=== PATIENT | female | born 1990 | race Caucasian/White ===

== ENCOUNTER → 2020-04-10 | Outpatient (CLI) | payer BC, MEDICAID ==
--- NOTE | 2020-04-10 19:54 | NUR ---
Notified patient of positive COVID results. Answered questions and explained quarantine.
== END ==
LOC: LAB 18:49
PROVIDERS: ATTEND Nurse Practitioner
DX: U07.1 COVID-19 (principal)
CPT/HCPCS: 87635

== ENCOUNTER → 2021-08-14 | Outpatient (CLI) | payer BC, MEDICAID | LOC: LAB 17:59 | PROVIDERS: ATTEND Emergency Medicine | DX: J02.9 Acute pharyngitis, unspecified (principal); Z20.822 Contact with and (suspected) exposure to COVID-19 | CPT/HCPCS: 87636 ==

== ENCOUNTER → 2022-02-05 | Outpatient (CLI) | payer BC, MEDICAID ==
--- NOTE | 2022-02-05 14:23 | Diagnostic Imaging Report ---
PROCEDURE: Pelvic comp/transvaginal sonogram. TECHNIQUE: Complete transabdominal and transvaginal pelvic ultrasound was performed. In addition, limited pelvic Doppler was performed. INDICATION: Evaluate IUD. Uterus is anteverted measuring 8.3 x 4.4 x 5.2 cm. Endometrium is 9 mm in thickness. The IUD is appropriately centered within the endometrial canal. Right ovary measures 4.7 x 2.9 x 3.1 cm and the left ovary measures 2.9 x 2.6 x 2.5 cm. There is blood flow to both ovaries. No adnexal mass or free fluid is detected. IMPRESSION: Unremarkable transabdominal and transvaginal pelvic ultrasound. IUD is appropriately centered within the endometrial canal. Dictated by: Dictated on workstation # [id number]
== END ==
LOC: RAD 12:00
PROVIDERS: ATTEND Obstetrics & Gynecology
DX: Z30.431 Encounter for routine checking of intrauterine contraceptive device (principal)
CPT/HCPCS: 76830; 76856

== ENCOUNTER → 2022-04-12 | Outpatient (CLI) | payer BC, MEDICAID ==
[2022-04-12 13:01] LABS: BASOPHILS # (AUTO) 0.1 10^3/uL (0.0-0.1); BASOPHILS % (AUTO) 1 % (0-10); EOSINOPHILS # (AUTO) 0.4 10^3/uL (0.0-0.3); EOSINOPHILS % (AUTO) 4 % (0-10); HEMATOCRIT 40 % (35-52); HEMOGLOBIN 13.4 g/dL (11.5-16.0); LYMPHOCYTES % (AUTO) 30 % (12-44); MEAN CORPUSCULAR HEMOGLOBIN 29 pg (25-34); MEAN CORPUSCULAR HGB CONC 33 g/dL (32-36); MEAN CORPUSCULAR VOLUME 87 fL (80-99); MEAN PLATELET VOLUME 10.5 fL (9.0-12.2); MONOCYTES # (AUTO) 0.5 10^3/uL (0.0-1.0); MONOCYTES % (AUTO) 5 % (0-12); NEUTROPHILS # (AUTO) 6.1 10^3/uL (1.8-7.8); NEUTROPHILS % (AUTO) 60 % (42-75); PLATELET COUNT 334 10^3/uL (130-400); WHITE BLOOD COUNT 10.1 10^3/uL (4.3-11.0)
[2022-04-12 13:10] LABS: ALBUMIN 4.2 GM/DL (3.2-4.5); POTASSIUM 3.8 MMOL/L (3.6-5.0)
[2022-04-12 13:11] LABS: CALCIUM 9.2 MG/DL (8.5-10.1)
[2022-04-12 13:12] LABS: TOTAL PROTEIN 7.5 GM/DL (6.4-8.2)
[2022-04-12 13:14] LABS: BILIRUBIN,TOTAL 0.2 MG/DL (0.1-1.0)
[2022-04-12 13:16] LABS: CREATININE SERUM 0.7 MG/DL (0.60-1.30)
[2022-04-12 13:40] LABS: FREE T4 (FREE THYROXINE) 0.8 NG/DL (0.70-1.48)
== END ==
LOC: LAB 12:49
PROVIDERS: ATTEND Nurse Practitioner Family
DX: Z00.00 Encounter for general adult medical examination without abnormal findings (principal); E03.9 Hypothyroidism, unspecified
CPT/HCPCS: 36415; 80053; 84439; 84443; 85025

== ENCOUNTER 2022-09-11 21:23 | Emergency (ER) | payer BC, MEDICAID ==
[~2022-09-11] VITALS: Ht 175 cm; Wt 176.9 kg
[2022-09-11 21:34] VITALS: BP 181/98
[2022-09-11 21:38] LABS: BILIRUBIN,URINE NEGATIVE (NEGATIVE); CLARITY,URINE CLEAR; COLOR,URINE YELLOW; GLUCOSE, URINE (UA) NEGATIVE (NEGATIVE); KETONES,URINE NEGATIVE (NEGATIVE); LEUKOCYTE ESTERASE ,URINE NEGATIVE (NEGATIVE); NITRITE,URINE NEGATIVE (NEGATIVE); PROTEIN,URINE TRACE (NEGATIVE)
[2022-09-11 21:45] LABS: AMORPHOUS SEDIMENT,UR FEW AMOR PHOSPHATE /LPF; BACTERIA,URINE FEW /HPF; RBC,URINE 0-2 /HPF; SQUAMOUS EPITHELIAL CELL,UR >50 /HPF; WBC,URINE 0-2 /HPF
[2022-09-11] MEDS ORDERED: KETOROLAC 15 MG/ML VIAL IVP ONE (21:45)
--- NOTE | 2022-09-11 22:00 | ED Back Pain ---
General Chief Complaint: Back Problems Stated Complaint: FLANK/BACK PAIN Nursing Triage Note: Pt presents with c/o R lower back pain for more than a week. She reports ibuprofen does help, however it is persistant when it wears off. Source of Information: Patient Exam Limitations: No Limitations (YEYO GRIFFIN APRN) History of Present Illness Date Seen by Provider: Sep 11, 2022 Time Seen by Provider: 21:32 Initial Comments 31-year-old female presents to the ED with complaints of right flank pain for the last 1.5 weeks. Denies history of kidney stone. States the pain is intermittent. States she has increased her water intake to over a gallon a day. States her urine is dark yellow in color, it has been neon yellow over the last 2 days. Denies taking any supplements. States she has been taking ibuprofen, states that it helps for a little bit but the pain persists once it wears off. Last took ibuprofen at 3:30 pm today. Reports dysuria, mild abdominal cramping and nausea. Reports she does have history of an umbilical hernia, states she is able to reduce it. Reports some pain when hernia is palpated. Reports normal bowel movements. Denies fevers, chest pain, shortness of air, denies diarrhea. Last menstrual period was 08/27. Medical history includes hypothyroidism, currently taking levothyroxine. (YEYO GRIFFIN APRN) Allergies and Home Medications Allergies Coded Allergies: No Known Drug Allergies (Unverified , 09/11/22) Patient Home Medication List Home Medication List Reviewed: Yes (YEYO GRIFFIN APRN) Review of Systems Constitutional: see HPI (YEYO GRIFFIN APRN) Past Mcowsut-Iewzgg-Bqnfll Hx Past Medical History Last Menstrual Period: Aug 27, 2022 (YEYO GRIFFIN APRN) Physical Exam Vital Signs Vital Signs - First Documented 09/11/22 21:34 Temp 36.8 Pulse 104 Resp 20 B/P (MAP) 181/98 (125) (NAPOLEON BENNETT DO) Vital Signs Capillary Refill : Less Than 3 Seconds (YEYO GRIFFIN APRN) Height, Weight, BMI Height: '" Weight: lbs. oz. kg; 57.00 BMI Method: General Appearance: WD/WN, Mild Distress Neck: Normal Inspection, Supple Cardiovascular: No Edema, No Gallop, No JVD, No Murmur, Tachycardia Respiratory: Lungs Clear, Normal Breath Sounds, No Accessory Muscle Use, No Respiratory Distress Gastrointestinal: Normal Bowel Sounds Back: Normal Inspection, No Vertebral Tenderness, CVA Tenderness (R) (Mild), Other (No increased pain with palpation of right lower back) Extremity: Normal Inspection, Normal Range of Motion Neurologic/Psychiatric: Alert, Oriented x3, No Motor/Sensory Deficits Skin: Normal Color, Warm/Dry (GABYYEYO EXTRUDING PRESS OPERATOR) Progress/Results/Core Measures Results/Orders Lab Results Laboratory Tests Test 09/11/22 21:30 09/11/22 21:55 Range/Units Urine Color YELLOW Urine Clarity CLEAR Urine pH 7.0 5-9 Urine Specific [place] 1.020 1.016-1.022 Urine Protein TRACE H NEGATIVE Urine Glucose (UA) NEGATIVE NEGATIVE Urine Ketones NEGATIVE NEGATIVE Urine Nitrite NEGATIVE NEGATIVE Urine Bilirubin NEGATIVE NEGATIVE Urine Urobilinogen 0.2 < = 1.0 MG/DL Urine Leukocyte Esterase NEGATIVE NEGATIVE Urine RBC (Auto) NEGATIVE NEGATIVE Urine RBC 0-2 /HPF Urine WBC 0-2 /HPF Urine Squamous Epithelial Cells >50 H /HPF Urine Crystals PRESENT H /LPF Urine Amorphous Sediment FEW MERCEDEZ PHOSPHATE H /LPF Urine Bacteria FEW H /HPF Urine Casts NONE /LPF Urine Mucus MODERATE H /LPF Urine Culture Indicated NO Urine Test NEGATIVE NEGATIVE White Blood Count 11.2 H 4.3-11.0 10^3/uL Red Blood Count 4.64 3.80-5.11 10^6/uL Hemoglobin 13.4 11.5-16.0 g/dL Hematocrit 40 35-52 % Mean Corpuscular Volume 86 80-99 fL Mean Corpuscular Hemoglobin 29 25-34 pg Mean Corpuscular Hemoglobin Concent 34 32-36 g/dL Red Cell Distribution Width 12.7 10.0-14.5 % Platelet Count 335 130-400 10^3/uL Mean Platelet Volume 11.3 9.0-12.2 fL Immature Granulocyte % (Auto) 0 % Neutrophils (%) (Auto) 50 42-75 % Lymphocytes (%) (Auto) 37 12-44 % Monocytes (%) (Auto) 8 0-12 % Eosinophils (%) (Auto) 4 0-10 % Basophils (%) (Auto) 1 0-10 % Neutrophils # (Auto) 5.6 1.8-7.8 10^3/uL Lymphocytes # (Auto) 4.1 H 1.0-4.0 10^3/uL Monocytes # (Auto) 0.9 0.0-1.0 10^3/uL Eosinophils # (Auto) 0.5 H 0.0-0.3 10^3/uL Basophils # (Auto) 0.1 0.0-0.1 10^3/uL Immature Granulocyte # (Auto) 0.0 0.0-0.1 10^3/uL Sodium Level 139 135-145 MMOL/L Potassium Level 4.1 3.6-5.0 MMOL/L Chloride Level 107 98-107 MMOL/L Carbon Dioxide Level 21 21-32 MMOL/L Anion Gap 11 5-14 MMOL/L Blood Urea Nitrogen 8 7-18 MG/DL Creatinine 0.75 0.60-1.30 MG/DL Estimat Glomerular Filtration Rate 110 BUN/Creatinine Ratio 11 Glucose Level 95 70-105 MG/DL Calcium Level 9.0 8.5-10.1 MG/DL Corrected Calcium 8.8 8.5-10.1 MG/DL Total Bilirubin 0.3 0.1-1.0 MG/DL Aspartate Amino Transf (AST/SGOT) 21 5-34 U/L Alanine Aminotransferase (ALT/SGPT) 35 0-55 U/L Alkaline Phosphatase 80 40-136 U/L Total Protein 7.5 6.4-8.2 GM/DL Albumin 4.3 3.2-4.5 GM/DL (SABRINA,NAPOLEON K DO) Vital Signs/I&O 09/11/22 21:34 Temp 36.8 Pulse 104 Resp 20 B/P (MAP) 181/98 (125) (SABRINA,NAPOLEON K DO) Blood Pressure Mean: 125 Progress Progress Note #1: Time: 21:45 Progress Note Patient seen and evaluated, pacing in room, moderate distress. Recent exam and symptoms, differential diagnosis includes but is not limited to kidney stones, musculoskeletal pain. Work-up initiated including urinalysis, CBC, CMP, CT abdomen pelvis. Toradol ordered for pain Progress Note #2: Time: 23:28 Progress Note Labs reviewed. CBC shows slightly elevated WBC at 11.2, CMP grossly normal. UA shows trace protein, negative RBCs, greater than 50 squamous epithelial cells, crystals present, few amorphous sediment, few bacteria, moderate mucus. Waiting for results of CT scan. Progress Note #3: Time: 23:[address] reviewed. Punctuate calcifications near the left ureteral vesicle junction without upstream hydronephrosis or hydroureter. She does not have any pain on the left side. CT also shows degenerative changes at the lumbosacral junction with mild bilateral foraminal and central canal stenosis. Patient does not have any leg pain or numbness in her legs. Right flank pain is likely not related to this. Discussed results with patient. Discussed that she may have had a kidney stone that passed and she is still having residual pain. Discussed that this may be musculoskeletal. Offered a muscle relaxer, patient declined. Patient given discharge instructions and return precautions. (YEYO GRIFFIN APRN) Departure Impression Primary Impression: Back pain Disposition: 01 HOME, SELF-CARE Condition: Stable Departure-Patient Inst. Decision time for Depature: 23:41 (YEYO GRIFFIN APRN) Referrals: LOREN GARCIA MD (PCP/Family) Primary Care Physician Patient Instructions: Low Back Pain (DC) Add. Discharge Instructions: Continue taking ibuprofen with food as needed for pain. You may also take Tylenol as needed for pain. You may use heat or ice. Follow-up with a primary care provider. Return for uncontrollable pain, fever, recurrent vomiting, inability to urinate, or any other new, concerning, or worsening symptoms. All discharge instructions reviewed with patient and/or family. Voiced understanding. ATTENDING PHYSICIAN NOTE: I WAS PHYSICALLY PRESENT ER PHYSICIAN, BUT I WAS NOT INVOLVED IN ANY DECISION MAKING OR ANY CARE OF THIS PATIENT AND I AM NOT COLLABORATING PHYSICIAN. (NAPOLEON BENNETT DO) YEYO GRIFFIN APRN Sep 11, 2022 22:00 NAPOLEON BENNETT DO Sep 14, 2022 05:15
[2022-09-11 22:08] LABS: BASOPHILS # (AUTO) 0.1 10^3/uL (0.0-0.1); BASOPHILS % (AUTO) 1 % (0-10); EOSINOPHILS # (AUTO) 0.5 10^3/uL (0.0-0.3); EOSINOPHILS % (AUTO) 4 % (0-10); HEMATOCRIT 40 % (35-52); HEMOGLOBIN 13.4 g/dL (11.5-16.0); LYMPHOCYTES # (AUTO) 4.1 10^3/uL (1.0-4.0); LYMPHOCYTES % (AUTO) 37 % (12-44); MEAN CORPUSCULAR HEMOGLOBIN 29 pg (25-34); MEAN CORPUSCULAR HGB CONC 34 g/dL (32-36); MEAN CORPUSCULAR VOLUME 86 fL (80-99); MEAN PLATELET VOLUME 11.3 fL (9.0-12.2); MONOCYTES # (AUTO) 0.9 10^3/uL (0.0-1.0); MONOCYTES % (AUTO) 8 % (0-12); NEUTROPHILS # (AUTO) 5.6 10^3/uL (1.8-7.8); NEUTROPHILS % (AUTO) 50 % (42-75); PLATELET COUNT 335 10^3/uL (130-400); WHITE BLOOD COUNT 11.2 10^3/uL (4.3-11.0)
[2022-09-11 22:16] LABS: ALBUMIN 4.3 GM/DL (3.2-4.5); POTASSIUM 4.1 MMOL/L (3.6-5.0)
[2022-09-11 22:19] LABS: TOTAL PROTEIN 7.5 GM/DL (6.4-8.2)
[2022-09-11 22:20] LABS: BILIRUBIN,TOTAL 0.3 MG/DL (0.1-1.0)
[2022-09-11 22:22] LABS: CREATININE SERUM 0.75 MG/DL (0.60-1.30)
--- NOTE | 2022-09-12 06:40 | Diagnostic Imaging Report ---
EXAMINATION: CT abdomen and pelvis without contrast. TECHNIQUE: Multiple contiguous axial images were obtained through the abdomen and pelvis without the use of intravenous contrast. All CT scans use one or more of the following dose optimizing techniques: automated exposure control, MA and/or KvP adjustment based on patient size and exam type or iterative reconstruction. HISTORY: Flank pain, kidney stone suspected COMPARISON: None available. FINDINGS: Lung bases: The lung bases are clear. Solid organs: The liver is normal. The gallbladder is surgically absent. There is no biliary ductal dilation. Pancreas is normal. Spleen is normal. Adrenal glands are normal. The kidneys are normal without visualized calculus or hydronephrosis. Bowel: The stomach and small bowel are normal without obstruction. The colon is unremarkable. No findings of acute appendicitis. Peritoneum: There is no intraperitoneal free fluid or free air. No suspicious lymphadenopathy. Multiple small calcifications within the left pelvis likely small phleboliths. Vasculature: Normal without aneurysm. Musculoskeletal: Degenerative changes of the spine without suspicious osseous lesion or compression fracture. There is a fat-containing ventral abdominal wall hernia. Pelvis: The uterus and adnexa are normal. The urinary bladder is normal. IMPRESSION: 1. No visualized renal calculus or hydronephrosis. 2. Calcifications within the pelvis likely represent vascular phleboliths but these do not appear to be within the ureter. 3. Otherwise agree with preliminary interpretation. Dictated by: Dictated on workstation # [id number]
== END 2022-09-12 00:05 | disposition home or self-care (01) ==
LOC: EDUNIT# 21:23 → ER 21:25
DX: M48.061 Spinal stenosis, lumbar region without neurogenic claudication (principal); D72.829 Elevated white blood cell count, unspecified
CPT/HCPCS: 36415; 74176; 80053; 81000; 84703; 85025; 96374

== ENCOUNTER → 2022-09-22 | Outpatient (CLI) | payer BC, MEDICAID ==
[2022-09-22 19:07] LABS: ALBUMIN 4.1 GM/DL (3.2-4.5); BILIRUBIN,TOTAL 0.2 MG/DL (0.1-1.0); CALCIUM 9.5 MG/DL (8.5-10.1); CREATININE SERUM 0.72 MG/DL (0.60-1.30); POTASSIUM 3.5 MMOL/L (3.6-5.0); TOTAL PROTEIN 7.1 GM/DL (6.4-8.2)
[2022-09-22 19:28] LABS: FREE T4 (FREE THYROXINE) 0.89 NG/DL (0.70-1.48)
== END ==
LOC: LAB 18:11
PROVIDERS: ATTEND Family Medicine
DX: U07.1 COVID-19 (principal); R06.02 Shortness of breath; R60.9 Edema, unspecified
CPT/HCPCS: 36415; 80053; 82306; 82607; 84439; 84443; 84481; 85379

== ENCOUNTER → 2022-10-14 | Outpatient (CLI) | payer BC, MEDICAID | LOC: CARD 14:19 | PROVIDERS: ATTEND Nurse Practitioner Critical Care Medicine | DX: R00.2 Palpitations (principal); R07.9 Chest pain, unspecified ==

== ENCOUNTER 2022-11-27 20:35 | Outpatient (CLI) | payer BC, MEDICAID | END 2022-11-28 05:10 | disposition home or self-care (01) | LOC: SLEEP 20:35 | PROVIDERS: ATTEND Nurse Practitioner Critical Care Medicine | DX: G47.10 Hypersomnia, unspecified (principal); R06.00 Dyspnea, unspecified; R00.2 Palpitations | CPT/HCPCS: 95811 ==

== ENCOUNTER → 2022-12-24 | Outpatient (CLI) | payer BC, MEDICAID ==
[~2022-12-24] MED LIST: BARIUM for suspension 96% w/w (Vanilla Silq Medium Density) PO ONE; BARIUM for suspension 98% w/w (Vanilla Silq High Density) PO ONE
--- NOTE | 2022-12-24 15:33 | Diagnostic Imaging Report ---
INDICATION: Pre-gastric sleeve surgery. Patient ingested effervescent crystals as well as thin and thick barium and imaging of the esophagus, stomach and proximal small bowel was performed. The esophagus has a smooth contour. No mass or stricture is identified. No gastroesophageal reflux or significant hiatal hernia was demonstrated. Stomach is normal in configuration. There is prompt emptying into the small bowel. Duodenal bulb is without deformity. IMPRESSION: Unremarkable double contrast upper GI study. Dictated by: Dictated on workstation # [id number]
== END ==
LOC: RAD 10:04
PROVIDERS: ATTEND Surgery
DX: Z01.818 Encounter for other preprocedural examination (principal); K21.9 Gastro-esophageal reflux disease without esophagitis
CPT/HCPCS: 74246

== ENCOUNTER → 2023-05-11 | Outpatient (CLI) | payer BC, MEDICAID | LOC: CARD 09:30 | PROVIDERS: ATTEND Internal Medicine Cardiovascular Disease | DX: I10 Essential (primary) hypertension (principal); I25.10 Atherosclerotic heart disease of native coronary artery without angina pectoris | CPT/HCPCS: 93306 ==

== ENCOUNTER 2023-07-08 05:34 | Outpatient (CLI) | payer BC, MEDICAID ==
[~2023-07-08] VITALS: Ht 175.3 cm; Wt 154.1 kg
[2023-07-09] MEDS ORDERED: LEVO25CA4 PO (08:55)
[2023-07-09] MEDS ORDERED: MTP25TSR PO (08:55)
== END 2023-07-09 09:18 | disposition home or self-care (01) ==
LOC: PREOP 05:34
PROVIDERS: ATTEND Surgery
DX: Z01.818 Encounter for other preprocedural examination (principal)